=== PATIENT | female | born 1990 | race Caucasian/White ===

== ENCOUNTER 2020-08-18 10:29 | Inpatient (IN) | payer OTHER ==
[~2020-08-18] VITALS: Ht 157.5 cm; Wt 79.1 kg
[2020-08-18 11:03] VITALS: BP 148/87
[2020-08-18 11:13] LABS: MICROSCOPIC INDICATED
[2020-08-18 11:21] LABS: CREATININE,URINE RANDOM 35.3 mg/dL
[2020-08-18 11:23] LABS: BASOPHILS % (AUTO) 0 % (0-1); EOSINOPHILS % (AUTO) 2 % (1-7); LYMPHOCYTES % (AUTO) 11 % (22-44); MEAN CORPUSCULAR HEMOGLOBIN 31.1 pg (27.0-34.8); MEAN CORPUSCULAR HGB CONC 33.9 g/dL (32.4-35.8); MEAN PLATELET VOLUME 8.2 fL (7.4-10.4); MONOCYTES % (AUTO) 8 % (2-9); NEUTROPHILS % (AUTO) 80 % (42-75); PLATELET COUNT 332 x10^3/uL (130-400); RED BLOOD COUNT 4.32 x10^6/uL (3.82-5.3); RED CELL DISTRIBUTION WIDTH 13.8 % (9.6-15.2)
[2020-08-18 11:36] LABS: ALANINE AMINOTRANSFERASE 20 U/L (12-78); ALBUMIN 3.1 g/dL (3.4-5.0); CALCIUM 9.2 mg/dL (8.5-10.1); CREATININE 0.55 mg/dL (0.55-1.02)
[2020-08-18 11:38] LABS: ALKALINE PHOSPHATASE 232 U/L (45-117); BILIRUBIN,TOTAL 0.3 mg/dL (0.2-1.0); TOTAL PROTEIN 7.3 g/dL (6.4-8.2)
[2020-08-18 11:42] LABS: BILIRUBIN, DIRECT < 0.1 mg/dL (0.1-0.2)
[2020-08-18 11:49] LABS: MD SCAN
[2020-08-18 12:10] LABS: ANION GAP 8 mmol/L (5-15); CHLORIDE 107 mmol/L (98-107)
[2020-08-18] MEDS ORDERED: D5%-LACTATED RINGERS 1,000 ML IV SCH (13:00)
[2020-08-18] MEDS ORDERED: FENTANYL PF 100 MCG/2ML IV PRN (13:00)
[2020-08-18] MEDS ORDERED: CALCIUM CARBONATE 500 MG TAB.CHEW PO PRN (13:00)
[2020-08-18] MEDS ORDERED: OXYTOCIN 30U/ 0.9% NaCL 500ML 500 ML IV PRN (13:00)
[2020-08-18] MEDS ORDERED: OXYTOCIN 30U/ 0.9% NaCL 500ML 500 ML IV ONE (13:00)
[2020-08-18] MEDS ORDERED: LACTATED RINGERS 1,000 ML IV SCH (13:00)
[2020-08-18] MEDS ORDERED: TERBUTALINE 1 MG/ML, 1ML SQ PRN (13:00)
[2020-08-18] MEDS ORDERED: ONDANSETRON 2MG/ML, 2ML IVPush PRN (13:00)
[2020-08-18] MEDS ORDERED: TERBUTALINE 1 MG/ML, 1ML IVPush PRN (13:00)
[2020-08-18] MEDS ORDERED: LIDOCAINE 1%, 20ML ONE (13:13)
[2020-08-18] MEDS ORDERED: NEWBORN KIT ONE (13:13)
[2020-08-18] MEDS ORDERED: MISOPROSTOL 200 MCG TABLET ONE (13:13)
[2020-08-18] MEDS ORDERED: FLUT9.9S16 NS (14:08)
[2020-08-18] MEDS ORDERED: FERR1TAB10 PO (14:10)
[2020-08-18] MEDS ORDERED: PNV1TAB.5 PO (14:11)
[2020-08-18] MEDS ORDERED: FENTANYL/BUPIV./NS/PF 250 ML EPIDCONT SCH (17:00)
[2020-08-18] MEDS ORDERED: FENTANYL PF 500 MCG, BUPIVACAINE/PF 0.5%, 30ML 62.5 ML in SODIUM CHLORIDE 0.9% 177.5 ML EPIDCONT SCH (17:00)
[2020-08-18 20:10] VITALS: BP 146/87
[2020-08-19] MEDS ORDERED: BUPIVACAINE 0.25% ONE ×2 (01:47→15:13)
[2020-08-19] MEDS: FENTANYL PF 100 MCG/2ML IVPush PRN ×3 (11:59→19:40)
[2020-08-19] MEDS ORDERED: DIPHENHYDRAMINE 50 MG/ML, 1ML ONE (16:07)
[2020-08-19] MEDS ORDERED: ROPIvacaine/PF 0.5%, 20 ML ONE (16:10)
[2020-08-19] MEDS ORDERED: LABETALOL 5MG/ML, 20ML ONE (16:15)
[2020-08-19] MEDS ORDERED: hydrALAzine 20 MG/ML, 1ML IVPush ONE (16:30)
[2020-08-19] MEDS ORDERED: DIPHENHYDRAMINE 50 MG/ML, 1ML IVPush ONE (16:30)
[2020-08-19] MEDS ORDERED: [UNRECOGNIZED DRUG - OTHER] IVPush SCH (16:30)
[2020-08-19] MEDS ORDERED: LABETALOL 5MG/ML, 20ML IVPush PRN ×3 (16:30)
[2020-08-19] MEDS ORDERED: FENTANYL PF 100 MCG/2ML ONE (16:47)
[2020-08-19] MEDS ORDERED: SIMETHICONE 80 MG CHEW TAB PO PRN (20:30)
[2020-08-19] MEDS ORDERED: ACETAMINOPHEN 325 MG TABLET PO PRN ×2 (20:30)
[2020-08-19] MEDS ORDERED: ONDANSETRON 2MG/ML, 2ML IV PRN (20:30)
[2020-08-19] MEDS ORDERED: MISOPROSTOL 200 MCG TABLET PR PRN (20:30)
[2020-08-19] MEDS ORDERED: OXYcodone/APAP 5/325MG TABLET PO PRN ×2 (20:30)
[2020-08-19] MEDS: OXYTOCIN 30U/ 0.9% NaCL 500ML 500 ML IV SCH (20:38)
[2020-08-19 22:00] VITALS: BP 131/86
[2020-08-19] MEDS: IBUPROFEN 600 MG TABLET PO PRN (22:44)
[2020-08-20 01:05] VITALS: BP 127/79
[2020-08-20 02:34] LABS: BASOPHILS % (AUTO) 0 % (0-1); EOSINOPHILS % (AUTO) 0 % (1-7); LYMPHOCYTES % (AUTO) 7 % (22-44); MEAN CORPUSCULAR HGB CONC 33.7 g/dL (32.4-35.8); MEAN PLATELET VOLUME 7.9 fL (7.4-10.4); MONOCYTES % (AUTO) 7 % (2-9); NEUTROPHILS % (AUTO) 85 % (42-75); PLATELET COUNT 265 x10^3/uL (130-400); RED BLOOD COUNT 3.75 x10^6/uL (3.82-5.3); RED CELL DISTRIBUTION WIDTH 13.6 % (9.6-15.2)
[2020-08-20 03:05] LABS: MD SCAN
[2020-08-20] MEDS: IBUPROFEN 600 MG TABLET PO PRN ×3 (04:39→21:30)
[2020-08-20 04:40] VITALS: BP 121/76
[2020-08-20] MEDS: OXYTOCIN 30U/ 0.9% NaCL 500ML 500 ML IV SCH (06:30)
[2020-08-20 07:05] VITALS: BP 131/89
[2020-08-20] MEDS: DOCUSATE 100 MG CAPSULE PO PRN (08:46)
[2020-08-20] MEDS: PRENATAL VIT/IRON/FA 1 EACH TABLET PO SCH (08:47)
[2020-08-20 12:15] VITALS: BP 128/81
[2020-08-20 16:20] VITALS: BP 120/74
[2020-08-20 20:00] VITALS: BP 135/93
[2020-08-21] MEDS: IBUPROFEN 600 MG TABLET PO PRN (08:26)
[2020-08-21] MEDS: PRENATAL VIT/IRON/FA 1 EACH TABLET PO SCH (08:26)
[2020-08-21] MEDS: DOCUSATE 100 MG CAPSULE PO PRN (08:26)
[2020-08-21 08:30] VITALS: BP 128/85
== END 2020-08-21 10:25 | disposition home or self-care (01) | DRG 807 ==
LOC: LDOP 10:29 → LDIP 12:39 → 2NW 08-19 21:55
PROVIDERS: ADMIT Obstetrics & Gynecology; ATTEND Obstetrics & Gynecology
PROC: 10D07Z6 Extraction of Products of Conception, Vacuum, Via Natural or Artificial Opening (ICD-10-PCS; principal; 2020-08-18)
PROC: 0KQM0ZZ Repair Perineum Muscle, Open Approach (ICD-10-PCS; 2020-08-18)
PROC: 3E0R3BZ Introduction of Anesthetic Agent into Spinal Canal, Percutaneous Approach (ICD-10-PCS; 2020-08-18)
PROC: 00HU33Z Insertion of Infusion Device into Spinal Canal, Percutaneous Approach (ICD-10-PCS; 2020-08-18)
PROC: 3E033VJ Introduction of Other Hormone into Peripheral Vein, Percutaneous Approach (ICD-10-PCS; 2020-08-18)
DX: O14.94 Unspecified pre-eclampsia, complicating childbirth (principal); Z37.0 Single live birth; O75.81 Maternal exhaustion complicating labor and delivery; Z3A.37 37 weeks gestation of pregnancy; O70.1 Second degree perineal laceration during delivery
CPT/HCPCS: 36415; 80053; 81001; 82248; 82570; 84156; 84550; 85025; 86592; 86850; 86900; 87086; 87635; G0378; J3010; J2590; J7120

== ENCOUNTER → 2020-11-11 | Outpatient (CLI) | payer OTHER ==
[~2020-11-11] MED LIST: FERR1TAB10 PO; FLUT9.9S16 NS; PNV1TAB.5 PO
== END | disposition home or self-care (01) ==
LOC: CFH 08:43
PROVIDERS: ATTEND Obstetrics & Gynecology
DX: N61.1 Abscess of the breast and nipple (principal)
CPT/HCPCS: 76642